=== PATIENT | female | born 1975 | race Two or more races ===

== ENCOUNTER 2018-08-14 06:45 | Emergency (ER) | payer SELFPAY ==
[~2018-08-14] VITALS: Ht 160 cm; Wt 92.5 kg
[2018-08-14] MEDS ORDERED: IV NORMAL SALINE 1000ML BAG 1,000 ML IV ONE (07:45)
[2018-08-14] MEDS ORDERED: fentaNYL PF VIAL 100 MCG/2 ML VIAL IV ONE (08:00)
[2018-08-14] MEDS ORDERED: fentaNYL PF VIAL 100 MCG/2 ML VIAL ONE (08:02)
[2018-08-14 08:03] LABS: CALCIUM 8.6 mg/dL (8.5-10.1); CREATININE 0.7 mg/dL (0.6-1.0); GFR 90.9; POTASSIUM 3.9 mmol/L (3.5-5.1)
[2018-08-14 08:04] LABS: BASO % 0 % (0-3); EOS % 0 % (0-3); HEMATOCRIT 38.3 % (36.0-47.0); HEMOGLOBIN 13.4 g/dL (12.0-15.5); LYMPH # 0.9 x10^3/uL (1.0-4.8); LYMPH % 9 % (24-48); MEAN CORPUSCULAR HEMOGLOBIN 30 pg (25-35); MEAN CORPUSCULAR HGB CONC 35 g/dL (31-37); MEAN CORPUSCULAR VOLUME 86 fL (79-100); MONO # 0.5 x10^3/uL (0.0-1.1); MONO % 6 % (0-9); NEUT # 8.1 x10^3uL (1.8-7.7); NEUT % 85 % (31-73); PLATELET COUNT 205 x10^3/uL (140-400); RED BLOOD COUNT 4.46 x10^6/uL (3.50-5.40); RED CELL DISTRIBUTION WIDTH 13.1 % (11.5-14.5); WHITE BLOOD COUNT 9.6 x10^3/uL (4.0-11.0)
[2018-08-14 08:08] LABS: BILIRUBIN,URINE NEGATIVE (NEG); CLARITY,URINE CLEAR; NITRITE,URINE NEGATIVE (NEG); PROTEIN,URINE NEGATIVE (NEG-TRACE); UROBILINOGEN,URINE 0.2 mg/dL (0.2 mg/dL)
[2018-08-14 08:09] LABS: ALBUMIN 3.6 g/dL (3.4-5.0); ALBUMIN/GLOBULIN RATIO 0.9 (1.0-1.7); TOTAL BILIRUBIN 0.6 mg/dL (0.2-1.0); TOTAL PROTEIN 7.7 g/dL (6.4-8.2)
[2018-08-14 08:26] LABS: BACTERIA,URINE FEW /HPF (0-FEW); COLOR,URINE STRAW; RBC,URINE RARE /HPF (0-2); SQUAMOUS EPITHELIAL CELL,UR FEW /LPF
[2018-08-14] MEDS ORDERED: SULF1TAB24 PO (08:43)
--- NOTE | 2018-08-14 08:44 | PHYS DOC ---
Past Medical History Past Medical History: Anxiety, UTI Past Surgical History: No Surgical History Additional Information: 3 years ago quit, now "I smoke like 1 a day not too much.:" Alcohol Use: Occasionally Drug Use: None Adult General Chief Complaint Chief Complaint: FLANK PAIN HPI HPI Patient is a 42 year old female who presents with progressively increasing left flank pain starting Tuesday. She reports the pain has been constant and accompanied by chills, nausea and pain with urination. She is unsure if she has a fever. She denies CP, SOB, hematuria, blood per rectum. She reports that she experienced a similar episode of flank pain 16 years ago when she was that resolved with antibiotics. Her LMP was Jul 08. She reports that she is being treated for a tooth abscess with amoxicillin but showed a rash last Tuesday. She stopped the amoxicillin and the rash has since resolved. Review of Systems Review of Systems Constitutional: Denies fever. Reports chills. Eyes: Denies change in visual acuity, redness, or eye pain [] HENT: Denies nasal congestion or sore throat [] Respiratory: Denies cough or shortness of breath [] Cardiovascular: No additional information not addressed in HPI [] GI: Reports constant abdominal pain, nausea. Denies vomiting, bloody stools or diarrhea [] : Reports dysuria and polyuria, denies hematuria [] Musculoskeletal: Reports L - lower back pain that wraps around to LLQ[] Integument: Denies rash or skin lesions [] Neurologic: Denies headache, focal weakness or sensory changes [] Endocrine: Denies polydipsia [] All other systems were reviewed and found to be within normal limits, except as documented in this note. Current Medications Current Medications Current Medications Medications (Trade) Dose Ordered Sig/[facility] Start Time Stop Time Status Last Admin Dose Admin Fentanyl Citrate (Fentanyl 2ml Vial) 100 mcg STK-MED ONCE 08/14/18 08:02 08/14/18 08:03 DC Ketorolac Tromethamine (Toradol 15mg Vial) 15 mg 1X ONCE 08/14/18 08:45 08/14/18 08:46 DC 08/14/18 08:46 15 MG Sodium Chloride 1,000 ml @ 1,000 mls/hr 1X ONCE 08/14/18 07:45 08/14/18 08:44 DC 08/14/18 08:05 1,000 MLS/HR Trimethoprim/ Sulfamethoxazole (Bactrim Ds) 1 tab 1X ONCE 08/14/18 08:45 08/14/18 08:46 DC 08/14/18 08:46 1 TAB Allergies Allergies Allergies Coded Allergies Type Severity Reaction Last Updated Verified Penicillins Allergy Intermediate Rash 10/27/15 Yes Physical Exam Physical Exam Constitutional: Well developed, well nourished, appears in pain with grimace, non-toxic appearance. [] HENT: Normocephalic, atraumatic, bilateral external ears normal, oropharynx moist, no oral exudates, nose normal. [] Eyes: PERRLA, EOMI, conjunctiva normal, no discharge. [] Neck: Normal range of motion, no tenderness, supple, no stridor. [] Cardiovascular:Heart rate regular rhythm, no murmur [] Lungs & Thorax: Bilateral breath sounds clear to auscultation [] Abdomen: MILD LEFT midabdomen ttp but mostly cva area. Bowel sounds normal, soft , no masses, no pulsatile masses. [] Skin: Warm, dry, no erythema, no rash. [] Back: L-CVA tenderness, positive Gabriel's test. [] Extremities: No tenderness, no cyanosis, no clubbing, ROM intact, no edema. [] Neurologic: Alert and oriented X 3, normal motor function, normal sensory function, no focal deficits noted. [] Psychologic: Affect normal, judgement normal, mood normal. [] Current Patient Data Vital Signs Vital Signs Date Time Temp Pulse Resp B/P (MAP) Pulse Ox O2 Delivery O2 Flow Rate FiO2 08/14/18 08:10 71 18 137/76 (96) 100 Room Air 08/14/18 07:00 98.4 98.4 Lab Values Laboratory Tests Test 08/14/18 07:26 08/14/18 07:30 08/14/18 07:41 POC Urine HCG, Qualitative Hcg negative (Negative) White Blood Count 9.6 x10^3/uL (4.0-11.0) Red Blood Count 4.46 x10^6/uL (3.50-5.40) Hemoglobin 13.4 g/dL (12.0-15.5) Hematocrit 38.3 % (36.0-47.0) Mean Corpuscular Volume 86 fL (79-100) Mean Corpuscular Hemoglobin 30 pg (25-35) Mean Corpuscular Hemoglobin Concent 35 g/dL (31-37) Red Cell Distribution Width 13.1 % (11.5-14.5) Platelet Count 205 x10^3/uL (140-400) Neutrophils (%) (Auto) 85 % (31-73) H Lymphocytes (%) (Auto) 9 % (24-48) L Monocytes (%) (Auto) 6 % (0-9) Eosinophils (%) (Auto) 0 % (0-3) Basophils (%) (Auto) 0 % (0-3) Neutrophils # (Auto) 8.1 x10^3uL (1.8-7.7) H Lymphocytes # (Auto) 0.9 x10^3/uL (1.0-4.8) L Monocytes # (Auto) 0.5 x10^3/uL (0.0-1.1) Eosinophils # (Auto) 0.0 x10^3/uL (0.0-0.7) Basophils # (Auto) 0.0 x10^3/uL (0.0-0.2) Sodium Level 133 mmol/L (136-145) L Potassium Level 3.9 mmol/L (3.5-5.1) Chloride Level 97 mmol/L (98-107) L Carbon Dioxide Level 27 mmol/L (21-32) Anion Gap 9 (6-14) Blood Urea Nitrogen 12 mg/dL (7-20) Creatinine 0.7 mg/dL (0.6-1.0) Estimated GFR (Cockcroft-Gault) 90.9 BUN/Creatinine Ratio 17 (6-20) Glucose Level 131 mg/dL (70-99) H Calcium Level 8.6 mg/dL (8.5-10.1) Total Bilirubin 0.6 mg/dL (0.2-1.0) Aspartate Amino Transferase (AST) 21 U/L (15-37) Alanine Aminotransferase (ALT) 39 U/L (14-59) Alkaline Phosphatase 67 U/L (46-116) Total Protein 7.7 g/dL (6.4-8.2) Albumin 3.6 g/dL (3.4-5.0) Albumin/Globulin Ratio 0.9 (1.0-1.7) L Urine Collection Type Unknown Urine Color Straw Urine Clarity Clear Urine pH 7.0 Urine Specific Warren <=1.005 Urine Protein Negative mg/dL (NEG-TRACE) Urine Glucose (UA) Negative mg/dL (NEG) Urine Ketones (Stick) Negative mg/dL (NEG) Urine Blood Large (NEG) Urine Nitrite Negative (NEG) Urine Bilirubin Negative (NEG) Urine Urobilinogen Dipstick 0.2 mg/dL (0.2 mg/dL) Urine Leukocyte Esterase Large (NEG) Urine RBC Rare /HPF (0-2) Urine WBC 11-20 /HPF (0-4) Urine Squamous Epithelial Cells Few /LPF Urine Bacteria Few /HPF (0-FEW) Laboratory Tests 08/14/18 07:30 Laboratory Tests 08/14/18 07:30 EKG EKG [] Radiology/Procedures Radiology/Procedures [] Course & Med Decision Making Course & Med Decision Making Pertinent Labs and Imaging studies reviewed. (See chart for details) Differential includes UTI with pyelonephritis, kidney stone, diverticulitis. Treating for pyelo with IV fluids, pain control and antibiotics. [] Final plan: Urinalysis is suggestive of a UTI patient is well-appearing with normal vitals plan to treat with Bactrim I gave her strict return precautions for any new or worsening symptoms she is not at this point time UTI/ early pyelo-seems like the most likely diagnosis. I think we can treat for that I have asked her come back in 2-3 days if she is not better other diagnoses as noted above see much less likely at this time. Dragon Disclaimer Dragon Disclaimer This electronic medical record was generated, in whole or in part, using a voice recognition dictation system. Departure Departure Impression: Primary Impression: Urinary tract infection Disposition: 01 HOME, SELF-CARE Condition: STABLE Referrals: NO PCP (PCP) Scripts Ibuprofen (IBUPROFEN) 600 Mg Tablet 600 MG PO PRN Q6HRS PRN for PAIN, #20 TAB take with food or milk Prov: KELL PACHECO MD 08/14/18 Sulfamethoxazole/Trimethoprim (BACTRIM DS TABLET) 1 Each Tablet 1 TAB PO BID, #20 TAB Prov: KELL PACHECO MD 08/14/18 KELL PACHECO MD Aug 14, 2018 08:44
[2018-08-14] MEDS ORDERED: KETOROLAC 15 MG/ML VIAL. IV ONE (08:45)
[2018-08-14] MEDS ORDERED: SMZ/TMP 800/160MG TABLET. PO ONE (08:45)
[2018-08-14] MEDS ORDERED: IBUP-1007 PO (08:49)
[2018-08-14 09:04] VITALS: BP 134/73
== END 2018-08-14 10:15 | disposition home or self-care (01) ==
LOC: ER 06:45
DX: N39.0 Urinary tract infection, site not specified (principal); M54.5 Low back pain; R11.0 Nausea; R10.32 Left lower quadrant pain; F41.9 Anxiety disorder, unspecified; F17.200 Nicotine dependence, unspecified, uncomplicated; Z88.0 Allergy status to penicillin
CPT/HCPCS: 36415; 80053; 81001; 81025; 85025; 87086; 87186; 96374; 96375; 99283; J1885; J3010; J7030